=== PATIENT | female | born 1970 | race Two or more races ===

== ENCOUNTER → 2022-09-28 | Emergency (ER) | payer OTHER ==
[~2022-09-28] VITALS: Ht 152.4 cm; Wt 77.1 kg
== END | disposition home or self-care (01) ==
LOC: ER 21:29
DX: M12.561 Traumatic arthropathy, right knee (principal); M12.562 Traumatic arthropathy, left knee; W00.9XXA Unspecified fall due to ice and snow, initial encounter; Y93.9 Activity, unspecified; Y92.9 Unspecified place or not applicable